=== PATIENT | male | born 1980 | race Caucasian/White ===

== ENCOUNTER 2017-11-11 19:03 | Emergency (ER) | payer OTHER ==
[2017-11-11 19:22] VITALS: BP 150/85
--- NOTE | 2017-11-11 20:12 | ED Physician Documentation ---
PD HPI LOWER EXT INJURY - Stated complaint Stated Complaint: RT FOOT INJ - Chief complaint Chief Complaint: Ext Problem - History obtained from History obtained from: Patient - History of Present Illness PD HPI LOW EXT INJURY LOCATION: Right, Foot Type of injury: Twist (he jammed it downward at tip of foot and the foot twisted too. Pain in mid foot, medially more.) Where injury occurred: Other (baseball field.) Timing - onset: Today Timing - details: Abrupt onset, Still present Similar symptoms before: Has not had sx before Recently seen: Not recently seen Review of Systems Skin: denies: Abrasion (s), Laceration (s) Neurologic: denies: Focal weakness, Numbness PD PAST MEDICAL HISTORY - Past Medical History Past Medical History: No Musculoskeletal: None - Past Surgical History Past Surgical History: Yes - Present Medications Home Medications: Ambulatory Orders Medication Instructions Recorded Confirmed No Known Home Medications [No 11/11/17 11/11/17 Known Home Medications] - Allergies Allergies/Adverse Reactions: Allergies Allergy/AdvReac Type Severity Reaction Status Date / Time No Known Drug Allergies Allergy Verified 11/11/17 19:20 - Social History Does the pt smoke?: No Smoking Status: Never smoker Does the pt drink ETOH?: No Does the pt have substance abuse?: No - Immunizations Immunizations are current?: Yes PD ED PE NORMAL - Vitals Vital signs reviewed: Yes - General General: Alert and oriented X 3, No acute distress, Well developed/nourished - Derm Derm: Normal color, Warm and dry - Extremities Extremities: Other (right foot with tenderness but no swelling/deformity mid foot dorsum and toward medial arch. Plantar not tender. Toes are not tender. ) - Neuro Neuro: No motor deficit, No sensory deficit Results - Vitals Vitals: Oxygen O2 Source Room air - Rads (name of study) foot Radiology: Prelim report reviewed (normal bones and joint spaces) PD MEDICAL DECISION MAKING - ED course Complexity details: reviewed results, considered differential, d/w patient - Sepsis Event Vital Signs: Oxygen O2 Source Room air Departure - Departure Disposition: 01 Home, Self Care Clinical Impression: Foot sprain Qualifiers: Encounter type: initial encounter Laterality: right Qualified Code(s): S93.601A - Unspecified sprain of right foot, initial encounter Condition: Stable Record reviewed to determine appropriate education?: Yes Instructions: ED Sprain Foot Comments: Your x-ray does not show any fractures no dislocations. It is okay to progress activity as able once this is feeling better. Use some anti-inflammatories such as ibuprofen or naproxen 2-3 times a day for the next several days. Add Tylenol if needed for pain. You could use foot support such as a firm soled shoe. He could use walking boot if needed short-term but he do not need that long-term for healing. Should be doing better over week or so. Discharge Date/Time: 11/11/17 21:03
--- NOTE | 2017-11-11 20:51 | XRAY Report ---
Procedure Date: 11/11/2017 Accession Number: [id number] / [id number] Procedure: XR - Foot 3 View RT CPT Code: FULL RESULT: EXAM: RIGHT FOOT RADIOGRAPHY EXAM DATE: 11/11/2017 08:41 PM. CLINICAL HISTORY: Foot injury. COMPARISON: None. TECHNIQUE: 3 views. FINDINGS: Bones: There is a subchondral cyst in the distal first metatarsal. No acute fracture. Joints: Joint space and alignment appear satisfactory. Soft Tissues: Normal. No soft tissue swelling. IMPRESSION: No fracture or subluxation. RADIA
== END 2017-11-11 21:03 | disposition home or self-care (01) ==
LOC: ED 19:03
DX: S93.601A Unspecified sprain of right foot, initial encounter (principal); W23.0XXA Caught, crushed, jammed, or pinched between moving objects, initial encounter; X50.9XXA Other and unspecified overexertion or strenuous movements or postures, initial encounter; Y93.64 Activity, baseball
CPT/HCPCS: 99282

== ENCOUNTER 2021-06-14 08:00 | Outpatient (CLI) | payer OTHER ==
--- NOTE | 2021-06-14 20:21 | XRAY Report ---
PROCEDURE: Chest 2 View X-Ray INDICATIONS: COUGH TECHNIQUE: 2 view(s) of the chest. COMPARISON: None. FINDINGS: Surgical changes and devices: None. Lungs and pleura: No pleural effusions or pneumothorax. Increased bronchovascular markings in bilate ral hilar region are seen with mild bronchial wall thickening. No definite focal infiltrate. Mediastinum: Mediastinal contours are normal. Heart size is normal. Bones and chest wall: No suspicious bony abnormalities. Soft tissues appear unremarkable. IMPRESSION: Suggestion of reactive airway disease such as bronchiolitis or asthma. No focal infiltra te, pleural effusion or pneumothorax. Reviewed by: Cooper Sorenson MD on 06/14/2021 8:19 PM PST Approved by: Cooper Sorenson MD on 06/14/2021 8:19 PM PST Station ID: [id number]
== END 2021-06-14 23:59 | disposition home or self-care (01) ==
LOC: DI.N 08:00
PROVIDERS: ATTEND Physician Assistant
DX: R05.9 Cough, unspecified (principal)

== ENCOUNTER 2021-09-12 06:37 | Outpatient (CLI) | payer OTHER ==
--- NOTE | 2021-09-12 08:19 | Ultrasound Report ---
PROCEDURE: Duplex Ext Veins Bilateral INDICATIONS: Peripheral edema TECHNIQUE: Real-time imaging, as well as color and pulse Doppler interrogation, were performed of the deep veins of both legs from the inguinal ligament to the popliteal fossa. COMPARISON: None FINDINGS: The deep veins are normally compressible, and free of intraluminal thrombus. Color and pu lse Doppler demonstrate normal phasic intravascular flow. There is normal augmentation response to d istal compression maneuver. IMPRESSION: No sonographic evidence of DVT. Reviewed by: Dileep Brandon MD on 09/12/2021 8:17 AM PDT Approved by: Dileep Brandon MD on 09/12/2021 8:17 AM PDT Station ID: [id number]
== END 2021-09-12 06:38 | disposition home or self-care (01) ==
LOC: DI 06:37
PROVIDERS: ATTEND Nurse Practitioner Family
DX: R60.0 Localized edema (principal); M79.661 Pain in right lower leg; M79.662 Pain in left lower leg; Z84.89 Family history of other specified conditions
CPT/HCPCS: 93970